=== PATIENT | male | born 1975 | race Caucasian/White ===

== ENCOUNTER 2022-11-03 14:41 | Emergency (ER) | payer OTHER, SELFPAY ==
--- NOTE | ~2022-11-03 | XR_ITS ---
Clinical Indication: Cough, shortness of breath PA and lateral views of the chest: Comparison: 03/28/2019 Findings: The lungs are clear, without evidence of focal consolidation or pleural effusion. Cardiome diastinal silhouette is within normal limits. Bones and soft tissues are unremarkable. Impression: Normal chest. Reviewed, dictated and finalized at location [] NGUAL SPEECH LANGUAGE PATHOLOGIST Impression: Normal chest.
[2022-11-03 15:03] VITALS: BP 146/89; PULSE 109; RESP 16; TEMP 37.2; O2SAT 99
--- NOTE | 2022-11-03 16:14 | ED.URI ---
HPI - URI/Sore Throat General Chief Complaint: Upper Respiratory Infection Stated Complaint: Cough/Shortness of Breath Time Seen by Provider: 11/03/22 16:14 Source: patient and RN notes reviewed Mode of arrival: ambulatory Limitations: no limitations History of Present Illness HPI Narrative: 47 y/o male presented for c/o fatigue and sob with exertion after testing positive for covid one week ago. He states he has had cough and sinus drainage for 2 weeks. Returned to work 2 days ago, feels more sob with exertion especially walking up stairs. States he felt he was not ready to return to work. denies chest pain, palpitations, wheezing, nausea, vomiting, fevers or chills. He has not taking anything for symptoms. MD elicited complaint: cough Related Data Allergies Allergy/AdvReac Type Severity Reaction Status Date / Time No Known Allergies Allergy Unverified 10/29/14 19:10 Review of Systems Review of Systems: ROS per HPI Exam Narrative: GENERAL: well-appearing, nontoxic no acute distress. HEAD: Normocephalic EYES: PERRLA, conjunctivae clear ENT: Mucous membranes moist. TM pearly yousif with dull light reflex bilaterally; no tragal tenderness. CHEST: Clear to auscultation, breath sounds equal. No wheezing, rhonchi, rales, or stridor. No respiratory distress, speaks in full sentences. HEART: Regular rate and rhythm. No murmur heard. SKIN: Warm, dry, no rash. NEURO: Alert and oriented x3. PSYCH: Normal mood and affect Course Course Emergency Course: Patient is aware of diagnosis, understands and agrees to treatment plan. Anticipatory guidance given. Patient agrees to follow-up as directed and is aware of reasons to seek care at the emergency department. Portions of this record may have been created with voice recognition software Level of Care: Express Care Visit Vital Signs Vital signs: Vital Signs Temperature 98.9 F 11/03/22 15:03 Pulse Rate 109 H 11/03/22 15:03 Respiratory Rate 16 11/03/22 15:03 Blood Pressure 146/89 H 11/03/22 15:03 Pulse Oximetry 99 11/03/22 15:03 Oxygen Delivery Room Air 11/03/22 15:03 Temperature 98.9 F 11/03/22 15:03 Pulse Rate 109 H 11/03/22 15:03 Respiratory Rate 16 11/03/22 15:03 Blood Pressure 146/89 H 11/03/22 15:03 Pulse Oximetry 99 11/03/22 15:03 Oxygen Delivery Room Air 11/03/22 15:03 reviewed MDM - URI/Sore Throat MDM Narrative Medical decision making narrative: results of CXR reviewed with patient. Advised supportive measures and signs/symptoms to go to the ER. Pt is appropriate for outpt treatment and f/u. Differential Diagnosis Differential diagnosis: Likely upper respiratory infection, sinusitis and viral infection Imaging Data Radiologist's impression: Patient: Kong Pace : 1975 MR#: [id number] Age/Sex: 47 / M Acct:[id number] Loc: [facility]? ? ADM Date: 11/03/22Attending Dr: Ordering Physician: Mckenna Brown APRN Date of Service: 11/03/22 Procedure(s): XR chest 2V Accession Number(s): [id number] cc: Mckenna Brown APRN; HIDE AND SKIN CLASSER PHYSICIAN~ Clinical Indication: Cough, shortness of breath ?PA and lateral views of the chest: Comparison: 03/28/2019 Findings: The lungs are clear, without evidence of focal consolidation or pleural effusion.? Cardiomediastinal silhouette is within normal limits. Bones and soft tissues are unremarkable. ? Impression: ? Normal chest. Discharge Plan Discharge Clinical Impression: Viral infection Patient Disposition: Home, Self-Care Condition: Stable Instructions: COVID-19 (Coronavirus Disease 2019) (ED) Additional Instructions: prescription for albuterol inhaler as needed for shortness of breath/ wheezing. Recommend establishing with a primary care provider in following up in 1 week. Go to the ER for any worsening symptoms or concerns. Prescriptions: New albuterol sulfate 90 mcg/actuation HFA aerosol inhaler 2 inh inhalation QID PRN
== END 2022-11-03 16:37 | disposition home or self-care (01) ==
PROVIDERS: Emergency Provider Nurse Practitioner Family
DX: B34.9 Viral infection, unspecified (principal)
CPT/HCPCS: 71046; 99203; G0463